=== PATIENT | male | born 1965 | race Caucasian/White ===

== ENCOUNTER → 2018-09-29 | Outpatient (CLI) | payer BC | LOC: COL.RAD 08:30 | DX: H93.12 Tinnitus, left ear (principal) | CPT/HCPCS: A9585 ==

== ENCOUNTER 2021-08-31 16:16 | Emergency (ER) | payer OTHER ==
[~2021-08-31] VITALS: Ht 185.4 cm; Wt 95.9 kg
[2021-08-31 16:32] VITALS: TEMP 98
[2021-08-31 18:17] VITALS: BP 130/79; PULSE 76
== END 2021-08-31 18:17 | disposition home or self-care (01) ==
LOC: COL.ER 16:16
DX: S61.011A Laceration without foreign body of right thumb without damage to nail, initial encounter (principal); Z23 Encounter for immunization; W23.1XXA Caught, crushed, jammed, or pinched between stationary objects, initial encounter